=== PATIENT | male | born 1985 | race African-American/Black ===

== ENCOUNTER 2018-08-24 11:41 | Emergency (ER) | payer SELFPAY ==
[~2018-08-24] VITALS: Ht 172.7 cm; Wt 112.9 kg
[2018-08-24 11:55] VITALS: BP 159/103; Ht 172.7 cm; Wt 112.9 kg
== END 2018-08-24 14:25 | disposition home or self-care (01) ==
LOC: ED 11:41
DX: Z43.3 Encounter for attention to colostomy (principal); Z88.1 Allergy status to other antibiotic agents